=== PATIENT | female | born 1985 | race Caucasian/White ===

== ENCOUNTER 2016-12-25 12:47 | Emergency (ER) | payer OTHER ==
[2016-12-25 12:38] LABS: URINE SOURCE CLEAN CATCH
[2016-12-25 12:41] LABS: URINE APPEARANCE CLEAR; URINE BILIRUBIN NEG (NEG); URINE BLOOD NEG (NEG); URINE COLOR YELLOW; URINE GLUCOSE NEG (NORM); URINE KETONE NEG (NEG); URINE LEUKOCYTE ESTERASE NEG (NEG); URINE NITRATE NEG (NEG); URINE PH 5.5 (5-8); URINE PROTEIN NEG (NEG); URINE SPECIFIC GRAVITY 1.025 (1.003-1.035); URINE UROBILINOGEN 0.2 MG/DL (NORM)
[2016-12-25 12:42] LABS: MICRO INDICATED? NO
[~2016-12-25 12:47] MED LIST: FLEXERIL10 MG PO; HEARTBURN; LISINOPRIL20 MG PO; VOLTAREN75 MG PO
== END 2016-12-25 13:19 | disposition home or self-care (01) ==
LOC: SED 12:47
PROVIDERS: Emergency Medicine
DX: R30.0 Dysuria (principal)
CPT/HCPCS: 81003; 84703; 99282

== ENCOUNTER 2017-01-06 19:01 | Emergency (ER) | payer OTHER ==
[2017-01-06 19:26] LABS: URINE SOURCE CLEAN CATCH
[2017-01-06 19:29] LABS: URINE APPEARANCE CLEAR; URINE BILIRUBIN NEG (NEG); URINE BLOOD NEG (NEG); URINE COLOR YELLOW; URINE GLUCOSE NEG (NORM); URINE KETONE NEG (NEG); URINE LEUKOCYTE ESTERASE NEG (NEG); URINE NITRATE NEG (NEG); URINE PROTEIN NEG (NEG); URINE SPECIFIC GRAVITY 1.015 (1.003-1.035); URINE UROBILINOGEN 0.2 MG/DL (NORM)
[2017-01-06 19:30] LABS: MICRO INDICATED? NO
[2017-01-08 19:18] LABS: CHLAMYDIA TRACH Not Detected (Not Detected); N GONOR Not Detected (Not Detected)
== END 2017-01-06 20:37 | disposition home or self-care (01) ==
LOC: SED 19:01
PROVIDERS: Emergency Medicine
DX: N89.8 Other specified noninflammatory disorders of vagina (principal); I10 Essential (primary) hypertension; F17.210 Nicotine dependence, cigarettes, uncomplicated
CPT/HCPCS: 81003; 84703; 87491; 87591; 87808; 87905; 96372; 99284; J0696

== ENCOUNTER 2017-04-25 14:56 | Emergency (ER) | payer OTHER ==
[2017-04-25] MEDS ORDERED: OMEPRAZOLE40 M1 PO (14:59)
[2017-04-25 15:33] LABS: URINE SOURCE CLEAN CATCH
[2017-04-25 15:35] LABS: URINE APPEARANCE CLEAR; URINE BILIRUBIN NEG (NEG); URINE BLOOD NEG (NEG); URINE COLOR YELLOW; URINE GLUCOSE NEG (NORM); URINE KETONE NEG (NEG); URINE LEUKOCYTE ESTERASE NEG (NEG); URINE NITRATE NEG (NEG); URINE PROTEIN NEG (NEG); URINE UROBILINOGEN 0.2 MG/DL (NORM)
[2017-04-25 15:38] LABS: MICRO INDICATED? NO
[2017-04-29 20:11] LABS: CHLAMYDIA TRACH Not Detected (Not Detected); N GONOR Not Detected (Not Detected)
== END 2017-04-25 17:20 | disposition home or self-care (01) ==
LOC: SED 14:56
PROVIDERS: Physician Assistant
DX: G89.18 Other acute postprocedural pain (principal); K21.9 Gastro-esophageal reflux disease without esophagitis; I10 Essential (primary) hypertension; Z98.890 Other specified postprocedural states; Z91.040 Latex allergy status; F17.210 Nicotine dependence, cigarettes, uncomplicated; Z79.899 Other long term (current) drug therapy
CPT/HCPCS: 81003; 87210; 87491; 87591; 87808; 87905; 96372; 99282; J1885